=== PATIENT | male | born 1960 | race Caucasian/White ===

== ENCOUNTER 2017-05-17 09:06 | Emergency (ER) | payer SELFPAY ==
[2017-05-17] MEDS: IPRATROPIUM/ALBUTEROL SULFATE 3 ML AMPUL.NEB NEB ONE ×2 (09:10→09:46)
[2017-05-17 09:42] LABS: BASOPHILS % 0.4 (0.0-1.5); EOSINOPHILS % 4.2 % (0.0-6.8); MEAN CORPUSCULAR HEMOGLOBIN 27.6 pg (28.0-34.0); MEAN CORPUSCULAR VOLUME 94.8 fl (80.0-100.0); MONOCYTES % 4.7 % (0.0-11.0)
[2017-05-17] MEDS: ACETAMINOPHEN 1,000 MG/100 ML INJ IV ONE (09:42)
[2017-05-17] MEDS: methylPREDNISolone SOD SUCC 125 MG/2 ML VIAL IVP ONE (09:43)
[2017-05-17 10:04] LABS: eGFR (African) > 60; eGFR (Non-African) > 60
[2017-05-17] MEDS ORDERED: fentaNYL CITRATE/PF 100 MCG/ 2ML AMP ONE (10:31)
[2017-05-17] MEDS: fentaNYL CITRATE/PF 100 MCG/ 2ML AMP IVP ONE (10:34)
--- NOTE | 2017-05-17 10:53 | Diagnostic Imaging Report ---
TOMÁS PARIKH [facility] [id number] [facility] [address] 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 No fracture or dislocation. Single view the chest demonstrates a mildly prominent cardiac silhouette. Mild tortuosity thoracic aorta. Mildly prominent interstitial pattern. No blunting of the costophrenic margins. Impression: No rib fracture. No gross consolidation or effusion. Electronically signed on May 17, 2017 10:26:30 AM KRAFT MILL OPERATOR by: Edilberto MORELOS
--- NOTE | 2017-05-17 11:10 | ED Physician Documentation ---
General Adult - HISTORIAN Historian: patient - HPI Stated Complaint: short of breath Chief Complaint: Dyspnea Onset: days ago Timing: still present Further Comments: no - ROS CONST: no problems. denies: fever, sweating, chills CVS/RESP: shortness of breath, cough. denies: chest pain GI/: denies: abdominal pain, vomiting, nausea, diarrhea, black stools MS/SKIN/LYMPH: denies: calf pain - PAST HX Past History: COPD, other (sleep apnea) Other History: none Surgeries/Procedures: none Allergies/Adverse Reactions: Allergies Allergy/AdvReac Type Severity Reaction Status Date / Time codeine Allergy Verified 05/17/17 09:29 NSAIDS (Non-Steroidal AdvReac Nausea/Vomi Verified 05/17/17 09:43 Anti-Inflamma ting Home Medications: Ambulatory Orders Medication Instructions Recorded Albuterol Sulfate [ProAir 1 puff INH DAILY 05/17/17 RespiClick] Albuterol Sulfate [Ventolin HFN] 2.5 mg NEB Q4 #60 ml 05/17/17 HYDROcodone /APAP 5/325 [[place]aufort 1 each PO Q6 PRN #20 tablet 05/17/17 5/325] Mometasone/Formoterol [Dulera 100 1 puff IH 05/17/17 Mcg/5 Mcg Inhaler] - SOCIAL HX Smoking History: greater than 1 pack/day Alcohol Use: none Drug Use: none - FAMILY HX Family History: Yes (dg CRISTOBAL) - VITAL SIGNS Vital Signs: Vital Signs Temp Pulse Resp BP Pulse Ox 97.8 F 88 24 137/77 80 L 05/17/17 09:06 05/17/17 09:06 05/17/17 09:06 05/17/17 09:06 05/17/17 09:06 - REVIEWED ASSESSMENTS Nursing Assessment Reviewed: Yes Vitals Reviewed: Yes Progress - Progress Progress: 09:42 Patient seems to have made improvement with Duoneb, wheezing is much improved. 10:20 Patient did not get much relief from acetominiphen IV, will try a dose of fentanyl Breathing seems to be improved, moving air much better. 11:12 Patient with sleeping drops SAO2 into the low 80s but has a hx of sleep apnea. With awaking patient can maintain in the upper 80s to lower 90s. With walking however drops into the upper 70s. I advised patient to be admitted to try to get some improvement in his lung function, however he refused. I had social service come down to talk with patient but he refused any suggestions or help. Patient was encouraged to get [facility]. He states that he applied for the necessary status but moved away before everything was completed. I spent some talking with patient about the danger of his low oxygen and the need for him to get established with care and get some oxygen but he refused to do so. ED Results Lab/Radiology - Lab Results Lab Results: Lab Results 05/17/17 05/17/17 09:35 09:35 WBC 8.40 K/ul K/ul (4.00-12.00) RBC 6.37 M/ul H M/ul (3.90-5.20) Hgb 17.6 g/dL g/dL (12.0-18.0) Hct 60.4 % H % (37.0-53.0) MCV 94.8 fl fl (80.0-100.0) MCH 27.6 pg L pg (28.0-34.0) MCHC 29.1 g/dL L g/dL (30.0-36.0) RDW 14.0 % % (11.3-14.3) Plt Count 201 K/mm3 K/mm3 (130-400) Neut % (Auto) 71.2 % % (39.0-79.0) Lymph % (Auto) 18.4 % % (16.0-50.0) Lares % (Auto) 4.7 % % (0.0-11.0) Eos % (Auto) 4.2 % % (0.0-6.8) Baso % (Auto) 0.4 (0.0-1.5) Neut # (Auto) 6.0 # k/uL # k/uL (1.4-7.7) Lymph # (Auto) 1.6 # k/uL # k/uL (0.6-4.0) Lares # (Auto) 0.4 # k/uL # k/uL (0.0-0.9) Eos # (Auto) 0.4 # k/uL # k/uL (0.0-0.6) Baso # (Auto) 0.0 # k/uL # k/uL (0.0-0.5) Reactive Lymphs % 1.1 % % (0.0-5.0) Reactive Lymphs # 0.1 # k/uL # k/uL (0.0-0.8) Sodium 138 mmol/L mmol/L (136-145) Potassium 4.2 mmol/L mmol/L (3.5-5.1) Chloride 92 mmol/L L mmol/L (98-107) Carbon Dioxide > 40 mmol/L H mmol/L (22-30) BUN 13 mg/dL mg/dL (9-20) Creatinine 0.70 mg/dL mg/dL (0.66-1.25) Estimated Creat Clear 255 Est GFR ( Amer) > 60 (60 - ) Est GFR (Non-Af Amer) > 60 (60 - ) Glucose 144 mg/dL H mg/dL (74-106) Calcium 8.7 mg/dL mg/dL (8.4-10.2) Total Bilirubin 0.4 mg/dL mg/dL (0.2-1.3) AST 37 U/L U/L (15-46) ALT 36 U/L U/L (13-69) Alkaline Phosphatase 73 U/L U/L (38-126) Total Protein 7.3 g/dL g/dL (6.3-8.2) Albumin 3.7 g/dL g/dL (3.5-5.0) - Radiology Radiology Impressions: Examination: Plain film chest/ribs History: Injury Comparison exam: None provided Findings: 4 views of the chest and ribs demonstrates normal cortical margins. No fracture or dislocation. Single view the chest demonstrates a mildly prominent cardiac silhouette. Mild tortuosity thoracic aorta. Mildly prominent interstitial pattern. No blunting of the costophrenic margins. Impression: No rib fracture. No gross consolidation or effusion. - Orders Orders: ED Orders Category Date Time Status Place IV Lock 1T Care 05/17/17 09:22 Active RIBS UNILATERAL W/ PA CHEST [RAD] Routine Exams 05/17/17 Completed CBC/PLATELET/DIFF Routine Lab 05/17/17 09:35 Completed CMP Routine Lab 05/17/17 09:35 Completed Acetaminophen [Ofirmev] Med 05/17/17 09:17 Discontinued 1,000 mg IV NOW ONE Ipratropium/Albuterol Sulfate [Duoneb] Med 05/17/17 09:17 Discontinued 3 ml NEB NOW ONE Ipratropium/Albuterol Sulfate [Duoneb] Med 05/17/17 09:44 Discontinued 3 ml NEB NOW ONE fentaNYL CITRATE/PF [Duragesic] Med 05/17/17 10:31 Discontinued 100 mcg .ROUTE .STK-MED ONE fentaNYL CITRATE/PF [Duragesic] Med 05/17/17 10:30 Discontinued 50 mcg IVP NOW ONE methylPREDNISolone SOD SUCC [Solu-MEDROL] Med 05/17/17 09:17 Discontinued 125 mg IVP NOW ONE Oxygen Daily Oxygen 05/17/17 09:30 Ordered General Adult Physical Exam - PHYSICAL EXAM GENERAL APPEARANCE: moderate distress EENT: eye inspection normal, ENT inspection normal, no signs of dehydration, TM' s nml NECK: normal inspection, thyroid normal, supple. No: stiff neck RESPIRATORY: wheezes (bilateral, with prolngation of expiratory phase), rhonchi (few right base), other (generalized pain to the right lasteral chest wall. no crepitus or subQ crepitus, no point bony abnl) CVS: reg rate & rhythm, heart sounds normal, equal pulses, no murmur, no gallop ABDOMEN: soft, no organomegaly, normal bowel sounds, no abdominal bruit, no distension SKIN: warm/dry, normal color EXTREMITIES: normal range of motion, other (mild anterior knee tenderness right) NEURO: oriented X3, CN's nml as tested, mood/affect nml, cognition normal Discharge Clincal Impression: COPD (chronic obstructive pulmonary disease) Qualifiers: COPD type: unspecified COPD Qualified Code(s): J44.9 - Chronic obstructive pulmonary disease, unspecified Chest wall contusion Qualifiers: Encounter type: initial encounter Laterality: right Qualified Code(s): S20.211A - Contusion of right front wall of thorax, initial encounter Prescriptions: Albuterol Sulfate [Ventolin HFN] 2.5 mg NEB Q4 #60 ml HYDROcodone /APAP 5/325 [[place] 5/325] 1 each PO Q6 PRN #20 tablet PRN Reason: as needed for pain Referrals: Primary Doctor,No [Primary Care Provider] - 2 Days Additional Instructions: Take Albuterol and Dulara sample as instructed. If you are going to be stay in this region for a period of time get established with a primary care provider. STOP SMOKING. Splint your right ribs when you need to cough. Take some slow deep breathes on a hourly basis to keep your lungs open. Take Hydrocodone as needed. It may cause drowsiness. If you need any further pain medication. I would strongly encourage you to go to a [facility] to get established for further care. Condition: Poor Disposition: 07 AGAINST MEDICAL ADVICE Decision to Admit: NO Date of Decison to Admit: 05/17/17 Decision Time: 10:58
[2017-05-17 11:45] VITALS: BP 148/85
== END 2017-05-17 11:36 | disposition left against medical advice (07) ==
LOC: ED 09:06
DX: S20.211A Contusion of right front wall of thorax, initial encounter (principal); X58.XXXA Exposure to other specified factors, initial encounter; Y93.9 Activity, unspecified; Y99.9 Unspecified external cause status; J44.9 Chronic obstructive pulmonary disease, unspecified; Z53.21 Procedure and treatment not carried out due to patient leaving prior to being seen by health care provider
CPT/HCPCS: 71101; 80053; 85025; J2930; J3010; 96374; 96375; 99283; S1016